=== PATIENT | female | born 1995 | race African-American/Black ===

== ENCOUNTER 2017-09-10 04:39 | Emergency (ER) | payer MEDICAID ==
[~2017-09-10] VITALS: Ht 167.6 cm; Wt 59.1 kg
[2017-09-10 06:28] VITALS: BP 114/63
== END 2017-09-10 06:31 | disposition home or self-care (01) ==
LOC: EMS 04:39
DX: M25.571 Pain in right ankle and joints of right foot (principal); Z02.89 Encounter for other administrative examinations; Y35.893A Legal intervention involving other specified means, suspect injured, initial encounter; Y93.89 Activity, other specified; Y92.89 Other specified places as the place of occurrence of the external cause; Y99.8 Other external cause status
CPT/HCPCS: 99283